=== PATIENT | male | born 1970 | race Caucasian/White ===

== ENCOUNTER 2019-02-05 10:47 | Emergency (ER) | payer OTHER ==
[~2019-02-05] VITALS: Ht 170.2 cm; Wt 79.4 kg
[2019-02-05] MEDS ORDERED: PREDNISONE 20 M20 MG PO (11:35)
[2019-02-05] MEDS ORDERED: EPIPEN 2-P0.3 MG/0.3 IM (12:20)
[2019-02-05 12:24] VITALS: BP 102/69
== END 2019-02-05 12:27 | disposition home or self-care (01) ==
LOC: M.ERS 10:47
DX: T63.441A Toxic effect of venom of bees, accidental (unintentional), initial encounter (principal); Y92.89 Other specified places as the place of occurrence of the external cause